=== PATIENT | female | born 1930 | race Caucasian/White ===

== ENCOUNTER 2017-11-09 20:39 | Emergency (ER) | END 2017-11-10 00:29 | disposition home or self-care (01) ==

== ENCOUNTER 2018-11-05 15:22 | Emergency (ER) | payer MEDICARE, OTHER ==
[~2018-11-05] VITALS: Ht 157.5 cm; Wt 84.1 kg
[~2018-11-05 15:22] MED LIST: AMLO1CAP5 PO; ASPI81TA52 PO; CLON-379 PO; IBUP-1561 PO; INSU100V27 SC; METF500T24 PO
[2018-11-05 15:26] VITALS: Ht 157.5 cm; Wt 84.1 kg
--- NOTE | 2018-11-05 16:04 | EN ---
Date/Time of Note Date/Time of Note DATE: 11/05/18 TIME: 16:04 ER Progress Note 88-year-old female presents for right flank, right rib pain status post fall. She has history of diabetes and hypertension. Medical screening exam initiated and lab/imaging tests ordered. Patient will be seen by another provider. DEMOND YIP DO Nov 05, 2018 16:04
--- NOTE | 2018-11-05 16:52 | ERD ---
ER Documentation Chief Complaint Chief Complaint fell off bed yesterday. no head injry. right sided back and shoulder pain HPI 88-year-old female history of diabetes, hypertension and remote colon cancer status post colectomy presents to the ED complaining of right flank and buttock pain after a fall. Last night patient was getting out of bed to go to the bathroom felt lightheaded and fell injuring her right side. Patient complaining of moderate to severe, sharp, nonradiating right flank and buttock pain exacerbated by movement. She denies head injury, headache, visual changes, focal weakness or numbness, loss of consciousness or neck pain. Patient reports she frequently feels lightheaded upon standing. Last night took 2 Advil with some relief of pain but this morning upon awakening the pain was significantly worse. No other relieving or exacerbating factors. No chest pain, palpitations, shortness of breath, abdominal pain, nausea or vomiting. No dysuria, polyuria or hematuria. Fevers or chills. ROS All systems reviewed and are negative except as per history of present illness. Medications Home Meds Active Scripts Acetaminophen* (Tylenol*) 325 Mg Tablet, 2 TAB PO Q6 PRN for PAIN LEVEL 1-5, #20 TAB Prov:MARYCHUY BAEZ MD 11/05/18 Naproxen* (Naprosyn*) 500 Mg Tablet, 500 MG PO BID PRN for PAIN LEVEL 6-10, #14 TAB Prov:MARYCHUY BAEZ MD 11/05/18 Nitrofurantoin Monohyd Macrocr* (Macrobid*) 100 Mg Capsr, 100 MG PO HS for 5 Days, CAP Prov:MARYCHUY BAEZ MD 11/05/18 Reported Medications Amlodipine Besylate* (Amlodipine Besylate*) 10 Mg Tablet, 10 MG PO DAILY, #30 TAB 11/05/18 Benazepril Hcl* (Benazepril Hcl*) 20 Mg Tablet, 20 MG PO BID, #60 TAB 11/05/18 Metformin Hcl* (Metformin Hcl*) 500 Mg Tablet, 500 MG PO WITH BREAKFAST DINNE, #60 TAB 11/05/18 Cholecalciferol (Vitamin D3) (Vitamin D-3) 2,000 Unit Tablet, 2000 UNIT PO DAILY, TAB 11/05/18 Alendronate Sodium* (Fosamax*) 70 Mg Tablet, 70 MG PO Q7D, #4 TAB 11/05/18 Sitagliptin Phos/Metformin HCl (Janumet 50-1,000 mg Tablet) 1 Each Tablet, 1 EACH PO DAILY, TAB 11/05/18 Labetalol Hcl* (Labetalol Hcl*) 100 Mg Tablet, 100 MG PO BID, TAB 11/05/18 Furosemide* (Lasix*) 20 Mg Tablet, 20 MG PO DAILY, TAB 11/05/18 [place]-3 Acid Ethyl Esters (Lovaza) 1 Gm Capsule, 1 GM PO BID, CAP 11/05/18 Insulin Aspart (Novolog Mix (70/30)) 100 Units/Ml Soln, 12 SC WITH DINNER, EA 11/05/18 Insulin Aspart (Novolog Mix (70/30)) 100 Units/Ml Soln, 16 SC WITH BREAKFAST, VIAL 11/05/18 Clonidine Hcl* (Clonidine Hcl*) 0.1 Mg Tab, 0.1 MG PO DAILY PRN for NEEDED, TAB 11/05/18 Aspirin* (Aspirin* EC) 81 Mg Tablet.dr, 81 MG PO DAILY, TAB 11/05/18 Discontinued Reported Medications Insulin Lisp Protam/Lisp Human* (Humalog Mix (75/25)*) 100 Units/Ml Susp, 12 SC PM, EA 07/31/14 Insulin Lisp Protam/Lisp Human* (Humalog Mix (75/25)*) 100 Units/Ml Susp, 16 SC AC BREAKFAST, EA 07/31/14 Aspirin (Low Dose Aspirin) 81 Mg Tablet.dr, 81 MG PO BID 07/31/14 Amlodipine-Benazepril (Lotrel) 5-10 Mg Capsule, 1 CAP PO DAILY, CAP 07/31/14 Metformin Hcl* (Metformin Hcl*) 500 Mg Tablet, 500 MG PO BID 11/11/11 Discontinued Scripts Clonidine Hcl* (Clonidine Hcl*) 0.1 Mg Tab, 0.1 MG PO TID, #10 TAB Prov:LISA ALICIA 11/10/17 Clonidine Hcl* (Clonidine Hcl*) 0.1 Mg Tab, 0.1 MG PO Q6, #10 TAB Prov:LISA ALICIA 11/10/17 Clonidine Hcl* (Clonidine Hcl*) 0.1 Mg Tab, 0.1 MG PO TID PRN for ELEVATED SYSTOLIC BP, #20 TAB Prov:LISA ALICIA 11/10/17 Ibuprofen* (Motrin*) 400 Mg Tab, 400 MG PO Q8 for PAIN, #30 Prov:MARY ELLEN BLANTON MD 01/29/15 Allergies Allergies: Coded Allergies: No Known Allergy (Unverified , 11/05/18) PMhx/Soc Reviewed in chart. As per HPI. History of Surgery: Yes (colon surgery for CA x2) Anesthesia Reaction: No Hx Neurological Disorder: No Hx Respiratory Disorders: No Hx Cardiac Disorders: Yes (HTN) Hx Psychiatric Problems: No Hx Miscellaneous Medical Probl: No Hx Alcohol Use: No Hx Substance Use: No Hx Tobacco Use: No FmHx No family history relevant to presenting complaint Physical Exam Vitals Vital Signs Date Temp Pulse Resp B/P (MAP) Pulse Ox O2 O2 Flow FiO2 Time Delivery Rate 11/05/18 62 18 127/53 97 Room Air 20:14 (77) 11/05/18 98.2 68 18 115/84 96 Room Air 16:55 (94) 11/05/18 98.2 72 18 115/84 96 15:26 (94) Physical Exam Const: Moderate to severe distress due to pain Head: Atraumatic Eyes: Pupils equal reactive light, extraocular movements are intact. No periorbital ecchymosis or subconjunctival hemorrhage. Normal Conjunctiva ENT: Normal External Ears, Nose and Mouth. Neck: Full range of motion. No midline bony tenderness or paraspinal muscle spasm. Resp: Breath sounds are equal and clear to auscultation bilaterally. Chest wall: No tenderness, ecchymosis or bruising. No subcutaneous crepitus. Cardio: Regular rate and rhythm, no murmurs Abd: Soft, obese, non tender, non distended. No rebound or guarding. Normal bowel sounds Skin: No rash. Ecchymosis to right flank and buttocks. Back: Right flank tenderness with ecchymoses. Ext: Right buttock tenderness and ecchymoses. No hip tenderness. Extremity is not shortened or rotated. Pulses equal bilaterally in all extremities. No cyanosis, or edema. Neur: Awake and alert. Cranial nerves II through XII are grossly intact. Motor and sensory equal bilaterally. No focal deficit. Psych: Anxious but not depressed. Result Diagram: 11/05/18 1630 11/05/18 1630 Results 24 hrs Laboratory Tests Test 11/05/18 16:26 11/05/18 16:30 Urine Color YELLOW Urine Clarity CLEAR Urine pH 5.0 Urine Specific [place] 1.017 Urine Ketones NEGATIVE mg/dL Urine Nitrite NEGATIVE mg/dL Urine Bilirubin NEGATIVE mg/dL Urine Urobilinogen NEGATIVE mg/dL Urine Leukocyte Esterase 2+ Jose Luis/ul Urine Microscopic RBC 2 /HPF Urine Microscopic WBC 59 /HPF Urine Bacteria FEW /HPF Urine Mucus FEW /HPF Urine Hemoglobin 1+ mg/dL Urine Glucose NEGATIVE mg/dL Urine Total Protein 1+ mg/dl White Blood Count 7.4 10^3/ul Red Blood Count 3.93 10^6/ul Hemoglobin 11.3 g/dl Hematocrit 34.8 % Mean Corpuscular Volume 88.5 fl Mean Corpuscular Hemoglobin 28.8 pg Mean Corpuscular Hemoglobin Concent 32.5 g/dl Red Cell Distribution Width 13.2 % Platelet Count 170 10^3/UL Mean Platelet Volume 10.3 fl Immature Granulocytes % 0.100 % Neutrophils % 60.3 % Lymphocytes % 28.9 % Monocytes % 8.9 % Eosinophils % 1.4 % Basophils % 0.4 % Nucleated Red Blood Cells % 0.0 /100WBC Immature Granulocytes # 0.010 10^3/ul Neutrophils # 4.5 10^3/ul Lymphocytes # 2.1 10^3/ul Monocytes # 0.7 10^3/ul Eosinophils # 0.1 10^3/ul Basophils # 0.0 10^3/ul Nucleated Red Blood Cells # 0.0 10^3/ul Sodium Level 144 mmol/L Potassium Level 4.3 mmol/L Chloride Level 107 mmol/L Carbon Dioxide Level 27 mmol/L Anion Gap 10 Blood Urea Nitrogen 22 mg/dl Creatinine 0.86 mg/dl Est Glomerular Filtrat Rate mL/min mL/min Glucose Level 136 mg/dl Calcium Level 9.8 mg/dl Magnesium Level 1.8 mg/dl Total Bilirubin 0.4 mg/dl Direct Bilirubin 0.00 mg/dl Indirect Bilirubin 0.4 mg/dl Aspartate Amino Transf (AST/SGOT) 38 IU/L Alanine Aminotransferase (ALT/SGPT) 45 IU/L Alkaline Phosphatase 73 IU/L Troponin I < 0.012 ng/ml Total Protein 8.1 g/dl Albumin 4.0 g/dl Globulin 4.10 g/dl Albumin/Globulin Ratio 0.97 Current Medications Medications Dose Sig/Earline Start Time Status Last (Trade) Ordered Route PRN Stop Time Admin Dose Reason Admin Morphine 2 mg ONCE ONCE 11/05/18 DC 11/05/18 Sulfate IV 17:30 17:36 (morphine) 11/05/18 17:31 Ondansetron 4 mg ONCE ONCE 11/05/18 DC 11/05/18 HCl (Zofran IV 17:30 17:36 Inj) 11/05/18 17:31 Ketorolac 10 mg ONCE STAT 11/05/18 DC 11/05/18 Tromethamine IV 17:06 17:36 (Toradol) 11/05/18 17:07 Sodium 500 ml @ Q1H STAT 11/05/18 DC 11/05/18 Chloride 500 mls/hr IV 17:13 17:36 11/05/18 18:12 Procedures/MDM DOCUMENTS REVIEWED: ED nurse, prior records EKG: Time: 1721. Sinus rhythm. Ventricular rate 66, normal MT and QRS intervals. No acute ST segment elevation or depression. No axis deviation or ectopy. My Interpretation: Normal EKG IMAGING: PROCEDURE: CT chest, abdomen and pelvis without contrast CLINICAL INDICATION: Post traumatic chest abdomen and pelvic pain following a fall. TECHNIQUE: CT scan of the chest, abdomen and pelvis was performed without intravenous contrast. Coronal and sagittal images were reformatted. DICOM images are available. One or more of the following dose reduction techniques were used: Automated exposure control, adjustment of the mA and/or kV according to patient size, use of iterative reconstruction technique. The CTDIvol = 17.59 mGy and DLP = 1236.79 mGycm. COMPARISON: CT abdomen and pelvis 07/31/2014 FINDINGS: Lungs, airway and pleura: The trachea and bronchi are patent as well as normal in caliber. No pulmonary laceration, parenchymal contusion or pneumothorax is demonstrated. Mild scattered bibasilar subsegmental atelectasis or scarring is present The pleural spaces are clear, without effusions. Mediastinum, afwn and cardiovascular: Moderate cardiomegaly with extensive coronary artery atherosclerotic calcification is present. There is no evidence for pericardial effusion. The thoracic aorta is normal in caliber without intramural hematoma. Atherosclerotic calcification is present within the aorta. No mediastinal hematoma or pneumomediastinum is present. Calcified mediastinal lymph nodes consistent with chronic granulomatous disease are noted The esophagus is normal in caliber. Osseous structures and musculoskeletal findings: Diffuse decreased mineralization cannot exclude osteopenia or osteoporosis. Bridging syndesmophytes most likely reflect diffuse idiopathic skeletal hyperostosis. There is no evidence of acute displaced rib fracture. The sternum appears intact. Degenerative changes of the glenohumeral joints are present bilaterally. No chest wall abnormalities are present. The axillary regions are unremarkable. Liver, gallbladder, pancreas and spleen: Nodular contour to the liver is concerning with cirrhosis with a few scattered punctate hepatic granulomatous calcifications. No evidence of hepatic laceration or subcapsular hematoma. The gallbladder is unremarkable. No common bile duct abnormality is demonstrated. The pancreas is unremarkable. The spleen is normal without evidence of laceration or subcapsular hematoma. Adrenal glands and genitourinary system: The left adrenal gland is unremarkable. A partially calcified fat-containing right adrenal gland mass is stable consistent with a myelolipoma of approximately 4.6 cm. The kidneys are normal and size, contour and attenuation with no evidence for laceration or perinephric hematoma. A tiny punctate calcification in the upper pole left kidney may reflect a 1 mm calculus without hydronephrosis The ureters are unremarkable. No urinary bladder abnormality is demonstrated. Atrophic calcified leiomyomatous uterus is present Gastrointestinal system: The stomach is normal in caliber with no abnormality of significance. The small bowel is normal in caliber with no ileus, obstruction or wall contusion. There is no evidence of appendicitis. Postoperative changes of the gastrointestinal system are compatible with partial colectomy anastomosis in the pelvis. There is no evidence for colitis or diverticulitis. Peritoneum, retroperitoneum, lymph nodes and vessels: The abdominal aorta is normal in caliber. There is severe aortic and iliac system atherosclerotic calcification. The inferior vena cava is unremarkable. There is no evidence for retroperitoneal hematoma. There is no ascites. No pneumoperitoneum is present. Osseous structures and musculoskeletal findings: There is no fracture involving the lumbosacral spine or bony pelvis. Degenerative changes of the lumbosacral spine is seen with vacuum disc phenomenon at L2-3 and L4-5. There are de generative changes of the hip joints bilaterally. Postoperative scarring of the abdominal wall is again noted. RPTAT:HJJR IMPRESSION: 1. There is no evidence of acute post traumatic intrathoracic, intra-abdominal, retroperitoneal or intrapelvic abnormality. 2. Cardiomegaly with extensive coronary artery and aortic atherosclerotic calcification as well as changes of chronic granulomatous disease. 3. Osteoporosis with diffuse idiopathic skeletal hyperostosis but no evidence for acute fracture. 4. Nodular contour to the liver concerning for cirrhosis with punctate hepatic calcified granulomata. 5. Stable right adrenal gland myelolipoma. 6. Equivocal 1 mm left upper pole renal calculus without hydronephrosis. 7. Atrophic leiomyomatous uterus. 8. Postoperative changes of the abdominal wall with prior partial colectomy anastomosis but no evidence of acute gastrointestinal system abnormality 9. Severe extensive atherosclerotic calcification.. Physician Stephanie Date Time Electronically viewed and signed by Physician Stephanie on 11/05/2018 18:30 JR/ [employer]ISION MAKIN-year-old female history of diabetes, hypertension and remote colon cancer status post colectomy presents to the ED complaining of right flank and buttock pain after a fall. CBC to evaluate for leukocytosis, anemia and thrombocytopenia reveals borderline anemia. Chemistry significant for elevated BUN consistent with dehydration but no electrolyte abnormalities, renal insufficiency or hyperglycemia. EKG negative for ischemia or dysrhythmia. Troponin is negative. Urinalysis significant for pyuria and 2+ leukocytes with negative nitrite. CT of the chest, abdomen pelvis to evaluate for traumatic injury with findings as above and there is no evidence of intrathoracic, intra- abdominal or musculoskeletal traumatic injury. Patient sustained multiple contusions. Pain improved with intravenous morphine and ketorolac. No head injury, syncope, headache or indication for neuroimaging. Lightheadedness and fall elect secondary to orthostatic hypotension and mild dehydration which was treated with intravenous normal saline 500 cc bolus. Asymptomatic bacteriuria in this patient with diabetes will be treated with antibiotics pending cultures. Stable for discharge with appropriate analgesics, precautionary instructions and outpatient follow-up as counseled. Counseled patient and family regarding diagnostic workup, diagnosis and need for followup. Understands to return to ED if symptoms recur, worsen or any other concerns. Departure Diagnosis: Primary Impression: Fall at home Encounter type: initial encounter Qualified Codes: W19.XXXA - Unspecified fall, initial encounter; Y92.009 - Unspecified place in unspecified non- institutional (private) residence as the place of occurrence of the external cause Additional Impressions: Contusion, flank Encounter type: initial encounter Qualified Codes: S30.1XXA - Contusion of abdominal wall, initial encounter Contusion, buttock Encounter type: initial encounter Qualified Codes: S30.0XXA - Contusion of lower back and pelvis, initial encounter Dehydration Diabetes mellitus type 2 in obese Condition: Stable (Improved) MARYCHUY BAEZ MD Nov 05, 2018 16:52
[2018-11-05] MEDS ORDERED: KETOROLAC 15 MG INJ IV STA (17:06)
[2018-11-05] MEDS ORDERED: SOD CHLORIDE 0.9% 500 ML IV STA (17:13)
[2018-11-05] MEDS ORDERED: morphine 4 MG/ML VIAL IV ONE (17:30)
[2018-11-05] MEDS ORDERED: ONDANSETRON 4 MG INJ IV ONE (17:30)
[2018-11-05] MEDS ORDERED: ASPI-817 PO (17:43)
[2018-11-05] MEDS ORDERED: CLON-379 PO (17:44)
[2018-11-05] MEDS ORDERED: NOVMIX SC ×2 (17:46)
[2018-11-05] MEDS ORDERED: FURO-110 PO (17:46)
[2018-11-05] MEDS ORDERED: OMEG1CAP2 PO (17:46)
[2018-11-05] MEDS ORDERED: LABE100T7 PO (17:47)
[2018-11-05] MEDS ORDERED: SITA1TAB5 PO (17:47)
[2018-11-05] MEDS ORDERED: ALEN70TA5 PO (17:47)
[2018-11-05] MEDS ORDERED: CHOL200056 PO (17:48)
[2018-11-05] MEDS ORDERED: BENA20TA4 PO (17:48)
[2018-11-05] MEDS ORDERED: METF500T24 PO (17:48)
[2018-11-05] MEDS ORDERED: AMLO-147 PO (17:49)
[2018-11-05] MEDS ORDERED: NAPR-985 PO (19:05)
[2018-11-05] MEDS ORDERED: ACET325T33 PO (19:05)
[2018-11-05] MEDS ORDERED: NITR-58 PO (19:05)
[2018-11-05 20:14] VITALS: BP 127/53; PULSE 62; RESP 18
== END 2018-11-05 20:15 | disposition home or self-care (01) ==
LOC: E/R 15:22
DX: S30.1XXA Contusion of abdominal wall, initial encounter (principal); S30.0XXA Contusion of lower back and pelvis, initial encounter; E86.0 Dehydration; E11.9 Type 2 diabetes mellitus without complications; E66.9 Obesity, unspecified; I10 Essential (primary) hypertension; R10.2 Pelvic and perineal pain; W06.XXXA Fall from bed, initial encounter; Y92.9 Unspecified place or not applicable; Z85.038 Personal history of other malignant neoplasm of large intestine; Z79.82 Long term (current) use of aspirin; Z79.4 Long term (current) use of insulin
CPT/HCPCS: 71250; 74176; 80053; 81001; 83735; 84484; 85025; 87086; 93005; 96374; 96375; 99285; J1885; J2270; J2405; J7040